=== PATIENT | female | born 1960 | race Asian ===

== ENCOUNTER 2019-06-30 16:10 | Emergency (ER) | payer MEDICAID ==
[~2019-06-30] VITALS: Ht 157.5 cm; Wt 55.5 kg
[~2019-06-30 16:10] MED LIST: AMLO5TAB9 PO; ATOR10TA84 PO; LISI-662 PO; METF-960 PO
[2019-06-30 16:12] VITALS: BP 116/66
== END 2019-06-30 17:43 | disposition left against medical advice (07) ==
LOC: EMS 16:10
DX: R11.2 Nausea with vomiting, unspecified (principal); Z53.21 Procedure and treatment not carried out due to patient leaving prior to being seen by health care provider